=== PATIENT | male | born 1965 | race African-American/Black ===

== ENCOUNTER 2022-02-23 07:49 | Day surgery (SDC) | payer BC ==
[2022-02-17 17:02] VITALS: BMI 38.6
[2022-02-23 08:15] VITALS: RESP 20
[2022-02-23] MEDS ORDERED: LIDOCAINE HCL/PF 2% SDV 5ML VIAL ONE (08:16)
[2022-02-23 10:03] VITALS: TEMP 97.4
[2022-02-23 10:09] VITALS: BP 141/84; PULSE 84
== END 2022-02-23 09:50 | disposition home or self-care (01) ==
LOC: FASU-ENDO 07:49
PROVIDERS: ATTEND Internal Medicine Gastroenterology
PROC: 0DJD8ZZ Inspection of Lower Intestinal Tract, Via Natural or Artificial Opening Endoscopic (ICD-10-PCS; principal; 2022-02-23 09:01)
DX: Z12.11 Encounter for screening for malignant neoplasm of colon (principal)